=== PATIENT | female | born 1965 | race Caucasian/White ===

== ENCOUNTER 2023-08-30 12:48 | Emergency (ER) | payer OTHER, MEDICAID ==
--- NOTE | 2023-08-30 13:12 | ED Physician Documentation ---
History of Present Illness - Stated complaint Stated Complaint: - Chief complaint Chief Complaint: General - Additonal information Additional information: 58-year-old generally healthy lady with painful erythema and swelling of her inguinal region. Patient states she noticed a red spot on the inferior lateral aspect of her left labia majora, over the past 3 days it spread to be quite painful and swollen superiorly and towards the midline. No concern for STI. The swelling was external to her labia she did not have any labial swelling such as a Bartholin's cyst or abscess. She is felt a lot of pain no systemic symptoms fevers or chills. No concern for STIs. No local trauma such as shaving. Review of Systems Constitutional: denies: Fever, Chills : denies: Dysuria, Frequency Skin: reports: Rash PD PAST MEDICAL HISTORY - Past Medical History Past Medical History: Yes Endocrine/Autoimmune: None LAST PUTTER AWAY: None Musculoskeletal: Rheumatoid arthritis - Past Surgical History Past Surgical History: Yes - Present Medications Home Medications: Ambulatory Orders Medication Instructions Recorded Confirmed Doxycycline [Vibramycin] 100 mg PO BID #20 tablet 08/30/23 Oxycodone HCl/Acetaminophen 1 - 2 each PO Q6H PRN #14 tablet 08/30/23 [Percocet 5-325 mg Tablet] cephALEXin [Keflex] 500 mg PO Q6H #28 cap 08/30/23 - Allergies Allergies/Adverse Reactions: Allergies Allergy/AdvReac Type Severity Reaction Status Date / Time gabapentin Allergy Unknown Verified 08/30/23 12:57 - Social History Does the pt smoke?: No Smoking Status: Never smoker Does the pt drink ETOH?: No Does the pt have substance abuse?: No PD ED PE NORMAL - Vitals Vital signs reviewed: Yes - General General: Alert and oriented X 3, No acute distress - HEENT HEENT: Atraumatic - Neck Neck: Supple, no meningeal sign - Cardiac Cardiac: No murmur - Respiratory Respiratory: No respiratory distress - Abdomen Abdomen: Normal bowel sounds - Female Female : Other (She has marked erythema induration and swelling of her mons pubis extending down inferiorly into the left labia majora. There is no focal fluctuance. No break in the skin There is no labial fluctuance or lesions. Diffusely indurated, markedly tender to the touch. Does not extend to perineum) Results - Vitals Vitals: Vital Signs - 24 hr 08/30/23 08/30/23 08/30/23 12:51 14:09 15:04 Temperature 36.8 C Heart Rate 102 H 83 80 Respiratory 22 16 18 Rate Blood Pressure 132/90 H 151/76 H 138/93 H O2 Saturation 100 97 94 08/30/23 16:04 Temperature Heart Rate 86 Respiratory 16 Rate Blood Pressure 126/80 O2 Saturation 99 Oxygen O2 Source Room air - Labs Labs: Laboratory Tests 08/30/23 08/30/23 08/30/23 13:39 13:39 13:39 WBC 15.4 H RBC 4.16 L Hgb 12.3 Hct 38.3 MCV 92.1 MCH 29.6 MCHC 32.1 RDW 14.3 Plt Count 367 MPV 9.4 Neut # (Auto) 12.3 H Lymph # (Auto) 1.1 L Mccormick # (Auto) 1.5 H Eos # (Auto) 0.3 Baso # (Auto) 0.1 Absolute Nucleated RBC 0.00 Nucleated RBC % 0.0 Sodium 138 Potassium 3.6 Chloride 103 Carbon Dioxide 28 Anion Gap 7.0 BUN 14 Creatinine 0.9 Estimated GFR (MDRD) 64 L Glucose 121 H Lactic Acid 0.7 Calcium 9.7 Total Bilirubin 0.6 AST 23 ALT 15 Alkaline Phosphatase 106 Total Protein 7.1 Albumin 3.7 Globulin 3.4 Albumin/Globulin Ratio 1.1 PD Medical Decision Making - ED course Complexity details: reviewed old records, reviewed results, re-evaluated patient, considered differential (Labial cellulitis versus Bartholin cyst abscess with cellulitis versus deep space infection such as abscess. Doubt she is having a Ramakrishna's type presentation.) ED course: Clinically well-appearing, slightly tachycardic likely on the basis of pain. Will check labs, blood cultures and CT scan to exclude abscess or other fluid collection, as well as to exclude gas-forming organism. Otherwise looks like a bad labial cellulitis. Will start on empiric IV Rocephin. labs reviewed: WBC elevated 15.4, chemistry normal (incl Na), lactate not elevated 0.7 Not clinically septic. Better after pain meds. CT pelvis: IMPRESSION: Significant subcutaneous fat stranding of the left mons pubis, extending into the left labia. No abscess. 4.6 cm intramural uterine fibroid. Re-checked on pt- she would like to try oral antibiotics and pain medication at home. Given that she is not clinically septic and given IV antibiotics here we would expect that this should improve. Will send her home on Keflex and doxycycline. Good pain medication as well. She knows he will return she understands return and follow-up instructions will come back if she is not doing better in the next 24 to 48 hours. Departure - Departure Disposition: Home, Self Care Clinical Impression: Cellulitis of labia majora Condition: Fair Prescriptions: cephALEXin [Keflex] 500 mg PO Q6H #28 cap Oxycodone HCl/Acetaminophen [Percocet 5-325 mg Tablet] 1 - 2 each PO Q6H PRN #14 tablet PRN Reason: pain Doxycycline [Vibramycin] 100 mg PO BID #20 tablet Comments: Your lab test and CT scan show no sign of a deep space infection which is reassuring. You do have a condition called cellulitis which is a skin infection of the skin and subcutaneous tissues of the skin of your mons pubis area down into your labia on that left side. On antibiotics this should improve relatively quickly. Should you be feeling worse have intolerable pain or spreading redness, please return to the emergency department immediately. We will give you 2 antibiotics and pain medication for home. Forms: PCP List
[2023-08-30] MEDS ORDERED: cefTRIAXone 1 GM VIAL ONE (13:42)
[2023-08-30 13:44] LABS: BASOPHILS # (AUTO) 0.1 10^3/uL (0.0-0.1); BASOPHILS % (AUTO) 0.5 %; EOSINOPHILS # (AUTO) 0.3 10^3/uL (0.0-0.7); HCT - HEMATOCRIT 38.3 % (37.0-47.0); HGB - HEMOGLOBIN 12.3 g/dL (12.0-16.0); LYMPHOCYTES # (AUTO) 1.1 10^3/uL (1.5-3.5); LYMPHOCYTES % (AUTO) 7.4 %; MEAN CORPUSCULAR HEMOGLOBIN 29.6 pg (27.0-31.0); MEAN CORPUSCULAR HGB CONC 32.1 g/dL (32.0-36.0); MEAN CORPUSCULAR VOLUME 92.1 fL (81.0-99.0); MEAN PLATELET VOLUME 9.4 fL (7.9-10.8); MONOCYTES # (AUTO) 1.5 10^3/uL (0.0-1.0); MONOCYTES % (AUTO) 9.6 %; NEUTROPHILS # (AUTO) 12.3 10^3/uL (1.5-6.6); PLT - PLATELET COUNT 367 10^3/uL (130-450); RED BLOOD COUNT 4.16 10^6/uL (4.20-5.40); RED CELL DISTRIBUTION WIDTH 14.3 % (12.0-15.0); WHITE BLOOD COUNT 15.4 x10^3/uL (4.8-10.8)
[2023-08-30] MEDS: ONDANSETRON 4 MG/2 ML VIAL IVP STA (13:47)
[2023-08-30] MEDS: SODIUM CHLORIDE 0.9% 1,000 ML IV STA ×2 (13:47→15:30)
[2023-08-30] MEDS ORDERED: iohexoL-300 100 ML VIAL ONE (13:48)
[2023-08-30] MEDS: HYDROmorphone 1 MG/ML CARPUJECT IVP STA ×2 (13:52→16:01)
[2023-08-30] MEDS: cefTRIAXone 1 GM in SODIUM CHLORIDE 0.9% MINIBAG 100 ML IV STA (13:55)
[2023-08-30 13:57] LABS: ALBUMIN 3.7 g/dL (3.2-5.5); ALBUMIN/GLOBULIN RATIO 1.1 (1.0-2.2); BILIRUBIN,TOTAL 0.6 mg/dL (0.2-1.0); CALCIUM 9.7 mg/dL (8.5-10.3); CREATININE 0.9 mg/dL (0.6-1.3); POTASSIUM 3.6 mmol/L (3.5-4.5); TOTAL PROTEIN 7.1 g/dL (6.4-8.9)
--- NOTE | 2023-08-30 16:13 | CT Report ---
PROCEDURE: Pelvis W INDICATIONS: labial cellulitis vs abscess? CONTRAST: Omni 300 100ml TECHNIQUE: After the administration of intravenous contrast, a CT scan of the pelvis was performed. Images were recorded and evaluated at appropriate window settings. Reformats: axial MIP of the chest, coronal an d sagittal. For radiation dose reduction, the following was used: automated exposure control, adjustm ent of mA and/or kV according to patient size. COMPARISON: None available FINDINGS: Image quality: Suboptimal due to metallic artifact. Bowel and peritoneum: No bowel distension. No pathologic free fluid. Vessels: No infrarenal aortic aneurysm. Reproductive organs: Suspected 4.4 x 4.6 cm intramural fibroid at the uterine fundus. Bladder: No abnormal wall thickening, accounting for underdistention. Pelvic lymph nodes: No pelvic adenopathy by size criteria. Reactive left inguinal chain nodes. Bones: Surgical fusion of the lower spine and pelvis. Other: Significant subcutaneous fat stranding of the left mons pubis, extending into the left labia. No abscess. IMPRESSION: Significant subcutaneous fat stranding of the left mons pubis, extending into the left labia. No absc ess. 4.6 cm intramural uterine fibroid. Reviewed by: Ricky Olmos MD on 08/30/2023 4:11 PM PDT Approved by: Ricky Olmos MD on 08/30/2023 4:11 PM PDT Station ID: [id number]
[2023-08-30 16:15] VITALS: BP 126/80; O2SAT 99
[2023-08-30] MEDS: iohexoL-300 100 ML VIAL IVP ONE (18:26)
== END 2023-08-30 17:05 | disposition home or self-care (01) ==
LOC: ED 12:48
DX: N76.2 Acute vulvitis (principal); M06.9 Rheumatoid arthritis, unspecified
CPT/HCPCS: 36415; 72193; 80053; 83605; 85025; 87040; 96365; 96375; 96376; 99283; 99284; J1170; Q9967